=== PATIENT | female | born 1955 | race Caucasian/White ===

== ENCOUNTER 2017-02-12 17:02 | Emergency (ER) | payer MEDICARE ==
--- NOTE | ~2017-02-12 | CR151 ---
[facility] A Service of [facility] RADIOLOGY TEXT RESULTS PATIENT: ROBERT RUSS LOCATION: [facility] : 55 UNIT #: [id number] AGE: [address]: Bryan Sawant MD SEX: F ORDER DR: [id number] [facility] [address] [place], [place] [address] [id number] MR#: [id number] Acc #: [id number] NAME: ROBERT RUSS. : 1955 SEX: F STUDY DATE/TIME: 02/12/2017 20:33 UNIT: [facility] ROOM: STUDY DESCRIPTION: CR Hip Min 2 Views Rt Attending Physician: Bryan Sawant M.D. Ordering Physician: Bryan Sawant M.D. Primary Care Physician: Quin Morgan M.D. MEDICAL IMAGING REPORT This report is preliminary unless electronic signature is present EXAM Right hip 2 views 02/12/2017 20:33 hours HISTORY Hip pain for 2 days. No reported injury. COMPARISON None. FINDINGS AP pelvis and frog lateral view right hip demonstrate no joint space loss or fracture. There is underlying scoliosis of the lower lumbar spine and secondary degenerative changes. Consider a lumbar source of the patient's pain. Sacrum and sacroiliac joints are remarkable for mild spurring. There are multiple radiopaque tablets within the cecum. Correlate with patient's medication history. There are approximately 8 tablets present. IMPRESSION 1. No pelvis or hip fracture seen. 2. Lumbar scoliosis with secondary degenerative changes. Consider possible lumbar source of the patient's pain. 3. Note is made of 8 ovoid medication tablets which are dense within the cecum. Correlate with patient's medication ingestion history. Dictated by... Niki Lino M.D. THIS IS AN ELECTRONICALLY VERIFIED REPORT Niki Lino M.D. at 02/13/2017 9:27 AM [place]/tomás TD: 02/12/2017 22:48 [facility] A Service of [facility] RADIOLOGY TEXT RESULTS PATIENT: ROBERT RUSS [id number] : 55 UNIT #: [id number] AGE: [address]: Bryan Sawant MD SEX: F ORDER DR: MANISHA #: [id number] MEDICAL IMAGING REPORT Page 1 of 1 COPY
[~2017-02-12 17:02] MED LIST: AMITRYPTYLINE PO; CYMBALTA PO; EXCEDRIN EXTRA1 TAB PO; EXCEDRIN MIGRAI1 TA1 PO; KEPPRA500 M2 PO; LAMOTRIGINE25 M1 PO; LORCET 10/650 T1 TAB PO; OXYCODONE-ACET1 EAC1 PO; OXYCONTIN 20MG20 MG PO; OXYCONTIN20 MG PO; PROTONIX PO; PROTONIX20 MG PO; ZANAFLEX PO; ZANTAC PO; [UNRECOGNIZED DRUG - OTHER]
[2017-03-11] MEDS ORDERED: LAMICTAL XR50 MG PO (10:22)
[2017-03-11] MEDS ORDERED: PROZAC40 MG PO (10:22)
[2017-04-17] MEDS ORDERED: OMEPRAZOLE20 M1 PO (08:21)
== END 2017-02-12 22:06 | disposition home or self-care (01) ==
LOC: CED 17:02
DX: S39.011A Strain of muscle, fascia and tendon of abdomen, initial encounter (principal); F17.200 Nicotine dependence, unspecified, uncomplicated; Z88.5 Allergy status to narcotic agent; Z79.82 Long term (current) use of aspirin; Z79.899 Other long term (current) drug therapy; X50.9XXA Other and unspecified overexertion or strenuous movements or postures, initial encounter
CPT/HCPCS: 73502; 96372; 99283; J1885

== ENCOUNTER → 2017-03-11 | Day surgery (SDC) | payer MEDICARE ==
[~2017-03-11] MED LIST changes: +LAMICTAL XR50 MG PO; +OMEPRAZOLE20 M1 PO; +PROZAC40 MG PO
--- NOTE | ~2017-03-11 | OR ---
Unit #: [id number] #: [id number] Patient: ROBERT RUSS [id number] [address] [address] [id number] O MR#: [id number] NAME: ROBERT RUSS. ROOM: Date of Procedure: 03/11/2017 Admission Date: 03/11/2017 Surgeon: Jared Oshea M.D. : 1955 Attending Physician: Jared Oshea M.D. Primary Care Physician: Quin Morgan M.D. OPERATIVE REPORT PREOPERATIVE DIAGNOSES Post-laminectomy syndrome, degenerative disk disease, back pain, radiculopathy. POSTOPERATIVE DIAGNOSES Post-laminectomy syndrome, degenerative disk disease, back pain, radiculopathy. PROCEDURE PERFORMED Lumbar epidural steroid injection with intravenous sedation and fluoroscopic guidance for needle localization. INDICATIONS FOR PROCEDURE The patient is a 61-year-old female with worsening back and right lower extremity pain. She had similar symptoms that settle with epidural steroids about 5 years ago. She had re-flare of the pain, not settle with conservative measures. Plan is to repeat an epidural steroid injection again. DESCRIPTION OF PROCEDURE The patient was placed in a seated position. Standard monitors were applied. 2 mg of Versed were given for sedation and anxiolysis, which were adequate. Vital signs remained stable. Sterile prep and drape then of lumbar area was performed. The skin then at the L3-L4 level was localized with 1% lidocaine. An 18-gauge Hustead needle was then advanced via loss of resistance technique and fluoroscopic guidance in toward the epidural space. After confirming proper positioning with fluoroscopy and radiographic contrast, 80 mg of Depo-Medrol and 4 mL of 0.125% bupivacaine were deposited. The patient tolerated the procedure otherwise well and was discharged to recovery room in stable condition. Dictated by... Lg WallsP/payall TD: 03/11/2017 11:20 JOB #: [id number] Unit #: [id number] #: [id number] Patient: ROBERT RUSS OPERATIVE REPORT Page 1 of 1 X Jared Oshea MD X PROCEDURE OPERATIVE NOTE
== END | disposition home or self-care (01) ==
LOC: CCSC 09:37
DX: M96.1 Postlaminectomy syndrome, not elsewhere classified (principal); M51.16 Intervertebral disc disorders with radiculopathy, lumbar region
CPT/HCPCS: J1040; J2250

== ENCOUNTER → 2017-03-18 | Day surgery (SDC) | payer MEDICARE ==
--- NOTE | ~2017-03-18 | OR ---
Unit #: [id number] #: [id number] Patient: ROBERT RUSS [id number] [address] [address] [id number] O MR#: [id number] NAME: ROBERT RUSS ROOM: Date of Procedure: 03/18/2017 Admission Date: 03/18/2017 Surgeon: Jared Oshea M.D. : 1955 Attending Physician: Jared Oshea M.D. Primary Care Physician: Quin Morgan M.D. OPERATIVE REPORT PREOPERATIVE DIAGNOSES Back pain, radiculopathy, postlaminectomy, degenerative disk disease. POSTOPERATIVE DIAGNOSES Back pain, radiculopathy, postlaminectomy, degenerative disk disease. PROCEDURE PERFORMED Lumbar epidural steroid injection with intravenous sedation and fluoroscopic guidance for needle localization. INDICATIONS FOR PROCEDURE The patient is a 61-year-old female with previously mentioned diagnosis. She had a flare of her pain especially in her right lower extremity that was not settle with conservative measures. In the past, this had happened, she did very well with epidural steroids for over 9 months. Last injections were done 4 years ago. Based on history, pathology, symptomatology, treatment options, and response to treatment, plan is to repeat an epidural steroid injection. First injection resulted in some mild improvement, not significant enough. We are going to proceed with a second injection at the different entry rep. DESCRIPTION OF PROCEDURE The patient was placed in a seated position. Standard monitors were applied. 2 mg of Versed were given for sedation and anxiolysis, which were adequate. Vital signs remained stable. Sterile prep and drape then of the lumbar area was performed. The skin then at the L4-L5 level was localized with 1% lidocaine. An 18-gauge Door 6tead needle was then advanced via loss of resistance technique and fluoroscopic guidance in toward the epidural space. After confirming proper positioning with fluoroscopy and radiographic contrast, 80 mg of Depo-Medrol and 4 mL of 0.125% bupivacaine were deposited. The patient tolerated the procedure well and was discharged to recovery room in stable condition. Dictated by... Lg Walls/rancho TD: 03/18/2017 11:28 Unit #: [id number] #: [id number] Patient: ROBERT RUSS JOB #: [id number] OPERATIVE REPORT Page 1 of 1 X Jared Oshea MD X PROCEDURE OPERATIVE NOTE
== END | disposition home or self-care (01) ==
LOC: CCSC 10:09
DX: M51.16 Intervertebral disc disorders with radiculopathy, lumbar region (principal); K21.9 Gastro-esophageal reflux disease without esophagitis; Z88.5 Allergy status to narcotic agent; Z79.899 Other long term (current) drug therapy
CPT/HCPCS: J1040; J2250

== ENCOUNTER → 2017-03-25 | Day surgery (SDC) | payer MEDICARE ==
--- NOTE | ~2017-03-25 | OR ---
Unit #: [id number] #: [id number] Patient: ROBERT RUSS [id number] [address] [place], [place] [address] [id number] O MR#: [id number] NAME: ROBERT RUSS ROOM: Date of Procedure: 03/25/2017 Admission Date: 03/25/2017 Surgeon: Jared Oshea M.D. : 1955 Attending Physician: Jared Oshea M.D. Primary Care Physician: Quin Morgan M.D. OPERATIVE REPORT JOB NOTE: CC: [facility] PREOPERATIVE DIAGNOSES Post-laminectomy, degenerative disk disease, back pain, radiculopathy. POSTOPERATIVE DIAGNOSES Post-laminectomy, degenerative disk disease, back pain, radiculopathy. PROCEDURE PERFORMED Lumbar epidural steroid injection with intravenous sedation and fluoroscopic guidance for needle localization. INDICATIONS FOR PROCEDURE The patient is a 61-year-old female with return of right lower extremity greater than low back pain. She failed to settle with conservative treatment. Similar symptoms settled about 2 years ago with series of epidurals. Plan then was to repeat the epidurals based on the prior response, her pathology, symptomatology, and response to treatment. The patient had return of the pain more recently, has not responded quite as well to the epidurals. We are going to proceed with a final injection today at the L3-L4 level, prior once done at L4-L5. If this is not settle things, we may look at expanding the workup. DESCRIPTION OF PROCEDURE The patient was placed in a seated position. Standard monitors were applied. 2 mg of Versed were given for sedation and anxiolysis, which were adequate. Vital signs remained stable. Sterile prep and drape then of lumbar area was performed. The skin at the L3-L4 level was localized with 1% lidocaine. An 18-gauge Ion Torrenttead needle was then advanced via loss of resistance technique and fluoroscopic guidance in toward the epidural space. After confirming proper positioning with fluoroscopy and radiographic contrast, 80 mg of Depo-Medrol and 4 mL of 0.5% lidocaine were deposited. The patient tolerated the procedure otherwise well and was discharged to the recovery room in stable condition. Dictated by... Jared Oshea M.D. LHDavonte/modl Unit #: [id number] #: [id number] Patient: ROBERT RUSS TD: 03/25/2017 12:33 JOB #: [id number] OPERATIVE REPORT Page 1 of 1 X Jared Oshea MD X PROCEDURE OPERATIVE NOTE
== END | disposition home or self-care (01) ==
LOC: CCSC 09:14
DX: M51.16 Intervertebral disc disorders with radiculopathy, lumbar region (principal); K21.9 Gastro-esophageal reflux disease without esophagitis; Z98.890 Other specified postprocedural states; Z88.5 Allergy status to narcotic agent; Z79.899 Other long term (current) drug therapy
CPT/HCPCS: J1040; J2250

== ENCOUNTER → 2017-04-17 | Day surgery (SDC) | payer MEDICARE ==
--- NOTE | ~2017-04-17 | OR ---
Unit #: [id number] #: [id number] Patient: ROBERT RUSS [id number] [address] [place], [place] [address] [id number] O MR#: [id number] NAME: ROBERT RUSS ROOM: Date of Procedure: 04/17/2017 Admission Date: 04/17/2017 Surgeon: Jared Oshea M.D. : 1955 Attending Physician: Jared Oshea M.D. Primary Care Physician: Quin Morgan M.D. OPERATIVE REPORT PREOPERATIVE DIAGNOSES Lumbar disk herniation, spondylolisthesis, back pain, radiculopathy, facet disease. POSTOPERATIVE DIAGNOSES Lumbar disk herniation, spondylolisthesis, back pain, radiculopathy, facet disease. PROCEDURE PERFORMED Transforaminal epidural steroid injection at the right L5-S1 level with intravenous sedation and fluoroscopic guidance. INDICATIONS FOR PROCEDURE The patient is a 61-year-old female with long history of back and left lower extremity pain due to her post-laminectomy syndrome. She had worsening right lower extremity pain over the last several months which would not settle with conservative treatment. Past epidural steroids have been helpful for multilevel multifactorial pathological changes. These injections were not helpful new right L5-S1 pathology pathology. Symptom complex is most consistent this is the etiology of her pain, so decision was made to give a trial of diagnostic therapeutic transforaminal injection at the right L5-S1 level. The patient at this point scheduled to see Dr. Philippe in about 2 weeks' time to assess the possibility of surgery to correct her current issues. DESCRIPTION OF PROCEDURE The patient was placed in a prone position. Standard monitors were applied. 2 mg of Versed were given for sedation and anxiolysis, which were adequate. Vital signs remained stable. Sterile prep and drape then of the lumbosacral area was performed. The skin then to the right of midline at the L5 level was localized with 1% lidocaine. A long 22-gauge Quincke point spinal needle was advanced with bilateral fluoroscopic guidance into the right L5-S1 neural foramina. The patient had a mild paresthesia, which quickly abated. After confirming proper positioning with fluoroscopy and radiographic contrast, 80 mg of Depo-Medrol and 1 mL of 0.25% bupivacaine were deposited. The patient tolerated the procedure otherwise well and was discharged to the recovery room in stable condition. Dictated by... Jared Oshea M.D. Unit #: [id number] #: [id number] Patient: ROEBRT RUSS LHP/modl TD: 04/17/2017 13:08 JOB #: [id number] CC: Suresh Pihlippe M.D. OPERATIVE REPORT Page 1 of 1 X Jared Oshea MD X PROCEDURE OPERATIVE NOTE
== END | disposition home or self-care (01) ==
LOC: CCSC 07:45
DX: M96.1 Postlaminectomy syndrome, not elsewhere classified (principal); M51.16 Intervertebral disc disorders with radiculopathy, lumbar region; M43.16 Spondylolisthesis, lumbar region; M53.86 Other specified dorsopathies, lumbar region; K21.9 Gastro-esophageal reflux disease without esophagitis; Z88.5 Allergy status to narcotic agent; Z79.899 Other long term (current) drug therapy
CPT/HCPCS: J1040; J2250